=== PATIENT | male | born 1945 | race African-American/Black ===

== ENCOUNTER 2022-07-06 04:31 | Emergency (ER) | payer OTHER ==
[2022-07-06] MEDS ORDERED: EPINEPHrine 1 MG/10 ML SYR IV ONE (04:32)
[2022-07-06] MEDS ORDERED: D5W 250 ML IV ONE (04:32)
--- OUTSIDE RECORDS SUMMARY | 2022-07-06 04:34 | XMS REPORT | Continuity of Care Document ---
:1945 Author Organization [facility] t Address [address] [place] [address] Dr. Osborn [address] [place] [id number] Care Team Providers Name Role Phone Bruce-Julyo_A_AH Attending Clinician Unavailable Bruce-Mbayo_A_AH Admitting Clinician Unavailable Payers Payer Name Policy Type Policy Number Effective Date Expiration Date S [place] [employer] P [id number] [facility] [place] - [id number] 2019 [employer] 00:00:00 (MEDICARE REPLACEMENT/ADVANT AGE - HMO) Problems Condition Condition Condition Status Onset Resolution Last Treating Co mments Source Name Details Category Date Date Treatment Clinician Date Hyperchole Hyperchole Problem Active 2019-11 [facility] sterolemia sterolemia -18 Fa jennifer 00:00: Practic 00 e Essential Essential Problem Active 2019-11 Jasvir clara hypertensi Hypertensi 1-18 Fa jennifer on on 00:00: Practic 00 e Benign Benign Problem Active 2019-11 [facility] prostatic Prostatic -18 Fami ly hyperplasi Hyperplasi 00:00: Pr actic a a 00 e Allergies, Adverse Reactions, Alerts This patient has no known allergies or adverse reactions. Social History Smoking Status Start Date Stop Date Source Never Smoker Samm Family P chas Medications Ordered Filled Start Stop Current Ordering Indication Dosage Frequency Signature Comments Components Source Medication Medication Date Date Medication? Clinician (SIG) Name Name amlodipine amlodipine No 1 Q1D amlodipine [facility] 10 mg 10 mg 10 mg Family tablet Take tablet Take tablet Practic 1 tablet 1 tablet Take 1 e every day every day tablet by oral by oral every day route. route. by oral route. aspirin 81 aspirin 81 No 1 Q1D aspirin 81 [facility] mg mg mg Family tablet,camille tablet,camille tablet,del Practic yed release yed release ayed e Take 1 Take 1 release tablet tablet Take 1 every day every day tablet by oral by oral every day route. route. by oral route. glimepiride glimepiride No 1 Q1D glimepirid [facility] 1 mg tablet 1 mg tablet e 1 mg Family Take 1 Take 1 tablet Practic tablet tablet Take 1 e every day every day tablet by oral by oral every day route. route. by oral route. hydrochloro hydrochloro No 1 Q1D hydrochlor [facility] thiazide 25 thiazide 25 othiazide Family mg tablet mg tablet 25 mg Prac tic Take 1 Take 1 tablet e tablet tablet Take 1 every day every day tablet by oral by oral every day route. route. by oral route. metoprolol metoprolol No 1 Q1D metoprolol [facility] tartrate 50 tartrate 50 tartrate Family mg tablet mg tablet 50 mg Prac tic Take 1 Take 1 tablet e tablet tablet Take 1 every day every day tablet by oral by oral every day route. route. by oral route. olmesartan olmesartan No 1 Q1D olmesartan [facility] 40 mg 40 mg 40 mg Family tablet Take tablet Take tablet Practic 1 tablet 1 tablet Take 1 e every day every day tablet by oral by oral every day route. route. by oral route. Plavix 75 Plavix 75 No 1 Q1D Plavix 75 [facility] mg tablet mg tablet mg tablet Family Take 1 Take 1 Take 1 Practic tablet tablet tablet e every day every day every day by oral by oral by oral route. route. route. pravastatin pravastatin No 1 Q1D pravastati [facility] 40 mg 40 mg n 40 mg Family tablet Take tablet Take tablet Practic 1 tablet 1 tablet Take 1 e every day every day tablet by oral by oral every day route. route. by oral route. tamsulosin tamsulosin No 1capsul Q1D tamsulosin [facility] 0.4 mg 0.4 mg e(s) 0.4 mg [facility] capsule capsule capsule Practi c Take 1 Take 1 Take 1 e capsule capsule capsule every day every day every day by oral by oral by oral route. route. route. Vital Signs Vital Name Observation Time Observation Value Comments Source Height 2020-09-19 00:00:00 73 [in_i] [facility] BMI (Body Mass 2020-09-19 00:00:00 31.7 kg/m2 [facility] Index) Practice Body Weight 2020-09-19 00:00:00 240 [lb_av] [facility] Procedures This patient has no known procedures. Plan of Care Planned Activity Planned Date Details Comments Source Instructions [facility] Encounters Start End Encounter Admission Attending Care Care Encounter Source Date/Time Date/Time Type Type Clinicians Facility Department ID 2021-08-18 Outpatient [facility] [id number] [facility] 07:52:55 [id number] [facility] 2020-10-12 2020-10-12 Outpatient Bruce-Mbayo VFP VFP [id number] [facility] 09:02:00 09:02:00 _A_AH [id number] [facility] Pract[facility] e 2020-10-02 2020-10-02 Outpatient Bruce-Mbayo VFP VFP [phone] [facility] 03:09:00 03:09:00 _A_AH [id number] Family Practic e 2020-09-28 2020-09-28 Outpatient Bruce-Mbayo VFP VFP [phone] [facility] 06:27:00 06:27:00 _A_AH [id number] Family Practic e 2020-09-26 2020-09-26 Outpatient Bruce-Mbayo VFP VFP [phone] [facility] 03:21:00 03:21:00 _A_AH [id number] Family Practic e 2020-09-19 2020-09-19 Outpatient Bruce-Mbayo VFP VFP [id number] [facility] 04:27:00 04:27:00 _A_AH [id number] Family Practic e 2020-09-19 2020-09-19 Marcela VFP [place] - [id number] [facility] 00:00:00 00:00:00 BruceMaryay [facility] Gareth nichols PATIENT COORDINATOR FRONT DESK: Medical - Practi c [email or web address], [place] [address], [place] [address] , Ph. 2019-12-21 2019-12-21 Outpatient Bruce-Mbayo VFP VFP [phone] [facility] 07:13:00 07:13:00 _A_AH [id number] Family Practic e Results This patient has no known results.
[2022-07-06 04:52] LABS: Absolute Lymphocytes (CBC) 2.7 K/uL (0.7-4.9); Hematocrit 43.8 % (39.6-49.0); Lymphocytes % 35.1 % (15.3-44.8); MCV 82.1 fL (80-100); MPV 8.5 fL (7.6-11.3); RBC Red Blood Cell Count 5.33 M/uL (4.33-5.43)
[2022-07-06 04:55] LABS: Protime INR 1.09
[2022-07-06] MEDS ORDERED: ASPIRIN 81 MG CHEWABLE TABLET ONE (04:56)
[2022-07-06 05:11] LABS: Albumin 3.2 g/dL (3.4-5.0); Bilirubin Direct 0.2 mg/dL (0-0.2); Bilirubin Total 0.4 mg/dL (0.2-1.0); Potassium 3.5 mmol/L (3.5-5.1); Protein, Total 7.2 g/dL (6.4-8.2)
[2022-07-06 05:13] LABS: Troponin High Sensitivity 5777.1 pg/mL (<58.9)
--- NOTE | 2022-07-06 05:24 | ER ---
Nurse's Notes [facility] Name: Yuniel Tirado Jr Age: 76 yrs Sex: Male : 1945 Arrival Date: 07/06/2022 Time: 04:32 Bed 7 Private MD: Diagnosis: Unstable angina;Essential (primary) hypertension;Persistent atrial fibrillation-WITH RVR;Dyspnea;Obesity, unspecified;Non ST elevation PA;Acute kidney failure, unspecified-ON CHRONIC;Ventricular tachycardia Presentation: 07/06 04:37 Chief complaint: Patient states: chest pain began at 7pm no relief positive for SOB and kl diaphoresis. Ebola Screen: Patient negative for fever greater than or equal to 101.5 degrees Fahrenheit, and additional compatible Ebola Virus Disease symptoms. Initial Sepsis Screen: Does the patient meet any 2 criteria? HR > 90 bpm. No. Patient's initial sepsis screen is negative. Does the patient have a suspected source of infection? No. Patient's initial sepsis screen is negative. Risk Assessment: Do you want to hurt yourself or someone else? Patient reports no desire to harm self or others. Onset of symptoms was July 05, 2022 at 19:00. 04:37 Method Of Arrival: Ambulatory 04:37 Acuity: SAVANNAH 2 kl 07:09 Coronavirus screen: Vaccine status: Patient reports receiving the 2nd dose of the covid ke1 vaccine. Triage Assessment: 04:39 General: Appears uncomfortable, well groomed, well developed, Behavior is calm, kl cooperative. Pain: Complains of pain in anterior aspect of right upper chest Pain currently is 2 out of 10 on a pain scale. Historical: - Allergies: 04:39 No Known Allergies; kl - Home Meds: 04:54 hydrochlorothiazide 25 mg Oral tab 1 tab once daily [Active]; Lopressor 50 mg Oral tab kl 1 tab 2 times per day [Active]; olmesartan 40 mg oral tab 1 tab once daily [Active]; Flomax 0.4 mg Oral cap 1 cap once daily [Active]; pravastatin 80 mg oral tab 1 tab once daily [Active]; clopidogrel 75 mg oral tab 1 tab once daily [Active]; aspirin 81 mg Oral cap 1 cap once daily [Active]; insulin [Active]; - PMHx: 04:39 Diabetes mellitus; Hypertensive disorder; Myocardial infarction; kl - PSHx: 04:39 Stented artery; kl - Immunization history:: Client reports receiving the 2nd dose of the Covid vaccine. - Social history:: Smoking status: Patient denies any tobacco usage or history of. - Family history:: not pertinent. Screenin:11 Abuse screen: Denies threats or abuse. Nutritional screening: No deficits noted. ke1 Tuberculosis screening: No symptoms or risk factors identified. Fall Risk None identified. Assessment: 05:00 Reassessment: Patient is alert, oriented x 3, equal unlabored respirations, skin ke1 warm/dry/pink. Cardiovascular: Rhythm is sinus tachycardia. 06:10 Cardiovascular: Rhythm is SVT. ke1 06:10 Reassessment: Patient denies pain at this time. Respiratory: Airway is patent ke1 Respiratory effort is even, unlabored, Respiratory pattern is regular, symmetrical. 06:27 Reassessment: report called to Martinez JARRELL. 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 ke1 Vital Signs: 04:37 BP 129 / 101; Pulse 132; Resp 30; Temp 98(O); Pulse Ox 100% ; Pain 2/10; kl 05:12 Weight 114.08 kg; Height 6 ft. 1 in. (185.42 cm); kl 05:30 BP 101 / 80; Pulse 142; Resp 25; Pulse Ox 98% on R/A; ke1 06:00 BP 113 / 99; Pulse 137; Resp 25; Pulse Ox 99% on R/A; ke1 06:20 BP 112 / 92; Pulse 135; Resp 27; Pulse Ox 97% on R/A; ke1 05:12 Body Mass Index 33.18 (114.08 kg, 185.42 cm) ED Course: 04:32 Patient arrived in ED. la1 04:39 Triage completed. 04:43 Initial lab(s) drawn, by ar, sent to lab. Inserted saline lock: 20 gauge in right tw5 antecubital area, using aseptic technique. Blood collected. 04:43 Basic Metabolic Panel Sent. tw5 04:43 CBC with Diff Sent. tw5 04:43 LFT's Sent. tw5 04:43 NT PRO-BNP Sent. tw5 04:43 PT-INR Sent. tw5 04:43 Troponin HS Sent. tw5 04:46 Gilberto Castle, RN is Primary Nurse. ke1 04:53 XRAY Chest (1 view) In Process Unspecified. EDMS 04:56 Arjun Nicolas MD is Attending Physician. enrique 05:[address] Nicolas with Sy Morton from the [facility]. 06:04 administrative approval given by Corinne Morton/ patient has been accepted to [facility] SICU 6CA5/ Dr. Rdz has accepted the patient in transfer without conference with Dr. Nicolas/ report to be called to [phone]. 06:06 [facility] called. eb 06:10 Inserted saline lock: 18 gauge EJ, using aseptic technique. by MD nicolas. ke1 06:11 Arm band placed on. ke1 06:11 Bed in low position. Call light in reach. Side rails up X 1. Side rails up X2. ke1 07:08 Renal Ultrasound-Complete In Process Unspecified. EDMS 07:08 No provider procedures requiring assistance completed. Patient transferred, IV remains ke1 in place. Administered Medications: 04:58 Drug: Aspirin Chewable Tablet 324 mg Route: PO; kl 07:13 Follow up: Response: No adverse reaction ke1 05:35 Drug: Pepcid (famotidine) 20 mg Route: IVP; Site: right antecubital; ke1 06:00 Follow up: Response: No adverse reaction ke1 05:35 Drug: Digoxin 0.5 mg Route: IVP; Site: right antecubital; ke1 06:15 Follow up: Response: No change in condition ke1 05:37 Drug: Heparin (PA-Bolus No thrombolytic) - HEParin 60 units/kg {Co-Signature: tw5 ke1 (Leena Rose).} Route: IVP; Site: right antecubital; 05:40 Drug: Heparin (PA Drip) 12 units/kg/hr - (HEParin 32724 units, D5W 500 ml) ke1 {Co-Signature: tw5 (Leena Rose).} Route: IV; Rate: calculated rate; Site: right antecubital; 05:45 Drug: Lopressor (metoprolol) 5 mg Route: IVP; Site: right antecubital; ke1 06:15 Follow up: Response: No change in condition ke1 05:46 Drug: PlaVIX (clopidogrel) 75 mg Route: PO; ke1 07:13 Follow up: Response: No adverse reaction ke1 05:47 Drug: Lopressor (metoprolol TARTRATE) 50 mg Route: PO; ke1 07:14 Follow up: Response: No change in condition ke1 06:06 CANCELLED (Duplicate Order): amiodarone 150 mg IVP once kl 06:06 Drug: amiodarone 150 mg Route: IVP; Site: right antecubital; kl 06:06 CANCELLED (Duplicate Order): amiodarone 900 mg, D5W 500 ml IVPB at 1 mg/min continuous; kl for 6 hrs, then change to 0.5 mg/min 06:08 CANCELLED (Duplicate Order): amiodarone 900 mg, D5W 500 ml IVPB at 1 mg/min continuous; tw5 for 6 hrs, then change to 0.5 mg/min 06:10 Drug: Magnesium Sulfate 1 grams Route: IVPB; Infused Over: 1 hrs; Site: left jugular; kl 06:15 Drug: amiodarone 900 mg, D5W 500 ml Route: IVPB; Rate: 1 mg/min; Site: right kl antecubital; 06:31 CANCELLED (Physician Discretion): Lopressor (metoprolol) 5 mg IVP once; Hold for SBP ke1 <100 or HR <60. 06:31 CANCELLED (Physician Discretion): Lopressor (metoprolol) 5 mg IVP once; Hold for SBP ke1 <100 or HR <60. 06:36 Drug: NS 0.9% 500 ml Route: IV; Rate: bolus; Site: left jugular; ke1 Medication: 07:09 VIS not applicable for this client. ke1 Outcome: 05:24 ER care complete, transfer ordered by . enrique 07:08 Transferred by helicopter to [facility]. ke1 07:09 Condition: stable ke1 07:09 Discharge instructions given to Instructed on the need for transfer. 07:15 Patient left the ED. ke1 Signatures: Dispatcher [employer] EDMS Nadine Elam RN RN kl Anderson, Corey, MD MD cha Attema, Lee, SCULLION CHIEF-C SCULLION CHIEF-Cla1 Ileana Price Tiffany 5 Gilberto Castle RN RN ke1 Leena Milton tw5 Corrections: (The following items were deleted from the chart) 06:38 06:37 BP 101 / 80; Pulse 142bpm; Resp 25bpm; Pulse Ox 98% RA; ke1 ke1
--- NOTE | 2022-07-06 05:24 | EDPHYS ---
Physician Documentation [facility] Name: Yuniel Tirado Jr Age: 76 yrs Sex: Male : 1945 Arrival Date: 07/06/2022 Time: 04:32 Bed 7 Private MD: ED Physician Arjun Nicolas HPI: 07/06 05:10 This 76 yrs old Black Male presents to ER via Ambulatory with complaints of chest pain enrique / sob x 1 day. 05:10 The patient has shortness of breath at rest, with light activity. Onset: The enrique symptoms/episode began/occurred 2 day(s) ago. Duration: The symptoms are continuous, and are unchanged since they started. The patient's shortness of breath is aggravated by exertion, light activity, is alleviated by rest, sitting up, application of supplemental oxygen. The patient or guardian reports chest pain that is located primarily in the substernal area. Onset: 2 day(s) ago. The pain does not radiate. Associated signs and symptoms: Pertinent positives: non-productive cough. Severity of symptoms: At their worst the symptoms were moderate in the emergency department the symptoms are unchanged. Associated signs and symptoms: Pertinent positives: diaphoresis, nausea, shortness of breath. The chest pain is described as a heaviness, a pressure. Historical: - Allergies: 04:39 No Known Allergies; kl - Home Meds: 04:54 hydrochlorothiazide 25 mg Oral tab 1 tab once daily [Active]; Lopressor 50 mg Oral tab kl 1 tab 2 times per day [Active]; olmesartan 40 mg oral tab 1 tab once daily [Active]; Flomax 0.4 mg Oral cap 1 cap once daily [Active]; pravastatin 80 mg oral tab 1 tab once daily [Active]; clopidogrel 75 mg oral tab 1 tab once daily [Active]; aspirin 81 mg Oral cap 1 cap once daily [Active]; insulin [Active]; - PMHx: 04:39 Diabetes mellitus; Hypertensive disorder; Myocardial infarction; kl - PSHx: 04:39 Stented artery; kl - Immunization history:: Client reports receiving the 2nd dose of the Covid vaccine. - Social history:: Smoking status: Patient denies any tobacco usage or history of. - Family history:: not pertinent. ROS: 05:10 Constitutional: Negative for fever, chills, and weight loss, Eyes: Negative for injury, enrique pain, redness, and discharge, ENT: Negative for injury, pain, and discharge, Neck: Negative for injury, pain, and swelling, Abdomen/GI: Negative for abdominal pain, nausea, vomiting, diarrhea, and constipation, Back: Negative for injury and pain, : Negative for injury, bleeding, discharge, and swelling, MS/Extremity: Negative for injury and deformity, Skin: Negative for injury, rash, and discoloration, Neuro: Negative for headache, weakness, numbness, tingling, and seizure, Psych: Negative for depression, anxiety, suicide ideation, homicidal ideation, and hallucinations, Allergy/Immunology: Negative for hives, rash, and allergies, Endocrine: Negative for neck swelling, polydipsia, polyuria, polyphagia, and marked weight changes, Hematologic/Lymphatic: Negative for swollen nodes, abnormal bleeding, and unusual bruising. 05:10 Cardiovascular: Positive for chest pain. 05:10 Respiratory: Positive for shortness of breath. Exam: 05:10 Constitutional: This is a well developed, well nourished patient who is awake, alert, enrique and in no acute distress. Head/Face: Normocephalic, atraumatic. Eyes: Pupils equal round and reactive to light, extra-ocular motions intact. Lids and lashes normal. Conjunctiva and sclera are non-icteric and not injected. Cornea within normal limits. Periorbital areas with no swelling, redness, or edema. ENT: Nares patent. No nasal discharge, no septal abnormalities noted. Tympanic membranes are normal and external auditory canals are clear. Oropharynx with no redness, swelling, or masses, exudates, or evidence of obstruction, uvula midline. Mucous membranes moist. Neck: Trachea midline, no thyromegaly or masses palpated, and no cervical lymphadenopathy. Supple, full range of motion without nuchal rigidity, or vertebral point tenderness. No Meningismus. Chest/axilla: Normal chest wall appearance and motion. Nontender with no deformity. No lesions are appreciated. Respiratory: Lungs have equal breath sounds bilaterally, clear to auscultation and percussion. No rales, rhonchi or wheezes noted. No increased work of breathing, no retractions or nasal flaring. Abdomen/GI: Soft, non-tender, with normal bowel sounds. No distension or tympany. No guarding or rebound. No evidence of tenderness throughout. Back: No spinal tenderness. No costovertebral tenderness. Full range of motion. Male : Normal genitalia with no discharge or lesions. Skin: Warm, dry with normal turgor. Normal color with no rashes, no lesions, and no evidence of cellulitis. MS/ Extremity: Pulses equal, no cyanosis. Neurovascular intact. Full, normal range of motion. Neuro: Awake and alert, GCS 15, oriented to person, place, time, and situation. Cranial nerves II-XII grossly intact. Motor strength 5/5 in all extremities. Sensory grossly intact. Cerebellar exam normal. Normal gait. Psych: Awake, alert, with orientation to person, place and time. Behavior, mood, and affect are within normal limits. 05:10 Cardiovascular: Rate: tachycardic, Rhythm: irregularly irregular, Pulses: Pulses are 4+ in bilateral radial, brachial, femoral, popliteal, posterior tibial and and dorsalis pedis arteries.. Heart sounds: normal, normal S1and S2, no S3 or S4, no murmur, no rub, no gallop, Edema: is not appreciated, JVD: is not appreciated. 05:10 ECG was reviewed by the Attending Physician. Vital Signs: 04:37 BP 129 / 101; Pulse 132; Resp 30; Temp 98(O); Pulse Ox 100% ; Pain 2/10; kl 05:12 Weight 114.08 kg; Height 6 ft. 1 in. (185.42 cm); kl 05:30 BP 101 / 80; Pulse 142; Resp 25; Pulse Ox 98% on R/A; ke1 06:00 BP 113 / 99; Pulse 137; Resp 25; Pulse Ox 99% on R/A; ke1 06:20 BP 112 / 92; Pulse 135; Resp 27; Pulse Ox 97% on R/A; ke1 05:12 Body Mass Index 33.18 (114.08 kg, 185.42 cm) Procedures: 06:09 Peripheral line: by aseptic technique a peripheral line was placed in the left external enrique jugular vein. MDM: 04:57 Patient medically screened. [facility] 05:19 Differential diagnosis: Chronic Obstructive Pulmonary Disease abnormal EKG, acute enrique myocardial infarction, acute pericarditis, anxiety, coronary artery disease esophagitis, gastritis, pancreatitis, pericarditis, pulmonary embolus, stable angina, unstable angina, Myocardial Infarction pulmonary edema, Pulmonary Embolism reactive airway disease, Unstable Angina. Antibiotic administration: Not indicated. HEART Score: History: Moderately Suspicious (1), ECG: Significant ST-deviation (2), Age: > or = 65 years (2), Risk Factors: > or = 3 Risk factors for atherosclerotic disease (2), [Hypercholesterolemia] [Hypertension] [DM] [+ Family HX] [Obesity] Troponin: > or = 3 x Normal Limit (2). The patient was given aspirin in the Emergency Department. The patient's Wells Deep Vein Thrombosis Score was calculated as follows: Total Score: 0. This patient was found to be at low risk for a deep vein thrombosis by using the Well's assessment criteria Heart Rate >100 BPM (1.5 Pts) Total Score: 0-2 Pts- Low Risk. The patient's pulmonary embolism risk score was calculated as follows: the patients heart rate is greater than 100 beats per minute (1.5 Pts) Total Score: 0-2 points. This patient was found to be at low risk for a pulmonary embolism by using the Well's assessment criteria the patients heart rate is greater than 100 beats per minute (1.5 Pts) Total Score: 0-2 points. This patient was found to be at low risk for a pulmonary embolism by using the Well's assessment criteria. ADAM Risk Score: 1 - patient's age is greater or equal to 65 years, 1 - Three or more CAD risk factors, 1- Known CAD, 1 - ASA use in past 7 days, 1 - Recent [<24hrs] Severe Angina, 1 - Elevated Cardiac Markers, 1 - ST deviation >0.5mm, TOTAL SCORE = 7. Immunization status: Pneumococcal vaccine: Influenza vaccine: Data reviewed: vital signs, nurses notes, lab test result(s), EKG, radiologic studies, plain films. Data interpreted: satellite project site monitor: rate is 138 beats/min, rhythm is regular, Pulse oximetry: on room air is 132 %. Test interpretation: by ED physician or midlevel provider: ECG, plain radiologic studies. 07/06 04:34 Order name: Basic Metabolic Panel; Complete Time: 05:36 07/06 04:34 Order name: CBC with Diff; Complete Time: 04:55 07/06 04:34 Order name: LFT's; Complete Time: 05:36 07/06 04:34 Order name: NT PRO-BNP; Complete Time: 05:36 la07/06 04:34 Order name: PT-INR; Complete Time: 05:11 la07/06 04:34 Order name: Troponin HS; Complete Time: 05:36 la07/06 04:34 Order name: XRAY Chest (1 view) la1 07/06 04:38 Order name: SARS RAPID; Complete Time: 06:28 la1 07/06 05:34 Order name: Ptt, Activated; Complete Time: 05:55 ke07/06 06:46 Order name: Renal Ultrasound-Complete EDMS 07/06 04:34 Order name: EKG; Complete Time: 04:35 la07/06 04:34 Order name: Cardiac monitoring; Complete Time: 04:43 la07/06 04:34 Order name: EKG - Nurse/Tech; Complete Time: 04:43 la07/06 04:34 Order name: IV Saline Lock; Complete Time: 04:43 la07/06 04:34 Order name: Labs collected and sent; Complete Time: 04:43 07/06 04:34 Order name: O2 Per Protocol; Complete Time: 04:43 07/06 04:34 Order name: O2 Sat Monitoring; Complete Time: 04:43 la07/06 05:09 Order name: IV Saline Lock - Large Bore; Complete Time: 07:13 enrique EC:10 Rate is 138 beats/min. Rhythm is irregularly irregular. QRS [place] is Normal. MO interval enrique is normal. QRS interval is prolonged at 140 msec. QT interval is normal. No Q waves. T waves are Normal. ST Segment is elevated in leads II, III, aVF, V3, V4, V5, V6. Clinical impression: Atrial Flutter. Interpreted by me. Reviewed by me. Administered Medications: 04:58 Drug: Aspirin Chewable Tablet 324 mg Route: PO; kl 07:13 Follow up: Response: No adverse reaction ke1 05:35 Drug: Pepcid (famotidine) 20 mg Route: IVP; Site: right antecubital; ke1 06:00 Follow up: Response: No adverse reaction ke1 05:35 Drug: Digoxin 0.5 mg Route: IVP; Site: right antecubital; ke1 06:15 Follow up: Response: No change in condition ke1 05:37 Drug: Heparin (CO-Bolus No thrombolytic) - HEParin 60 units/kg {Co-Signature: tw5 ke1 (Leena Rose).} Route: IVP; Site: right antecubital; 05:40 Drug: Heparin (CO Drip) 12 units/kg/hr - (HEParin 17376 units, D5W 500 ml) ke1 {Co-Signature: tw5 (Leena Rose).} Route: IV; Rate: calculated rate; Site: right antecubital; 05:45 Drug: Lopressor (metoprolol) 5 mg Route: IVP; Site: right antecubital; ke1 06:15 Follow up: Response: No change in condition ke1 05:46 Drug: PlaVIX (clopidogrel) 75 mg Route: PO; ke1 07:13 Follow up: Response: No adverse reaction ke1 05:47 Drug: Lopressor (metoprolol TARTRATE) 50 mg Route: PO; ke1 07:14 Follow up: Response: No change in condition ke1 06:06 CANCELLED (Duplicate Order): amiodarone 150 mg IVP once kl 06:06 Drug: amiodarone 150 mg Route: IVP; Site: right antecubital; kl 06:06 CANCELLED (Duplicate Order): amiodarone 900 mg, D5W 500 ml IVPB at 1 mg/min continuous; kl for 6 hrs, then change to 0.5 mg/min 06:08 CANCELLED (Duplicate Order): amiodarone 900 mg, D5W 500 ml IVPB at 1 mg/min continuous; tw5 for 6 hrs, then change to 0.5 mg/min 06:10 Drug: Magnesium Sulfate 1 grams Route: IVPB; Infused Over: 1 hrs; Site: left jugular; kl 06:15 Drug: amiodarone 900 mg, D5W 500 ml Route: IVPB; Rate: 1 mg/min; Site: right kl antecubital; 06:31 CANCELLED (Physician Discretion): Lopressor (metoprolol) 5 mg IVP once; Hold for SBP ke1 <100 or HR <60. 06:31 CANCELLED (Physician Discretion): Lopressor (metoprolol) 5 mg IVP once; Hold for SBP ke1 <100 or HR <60. 06:36 Drug: NS 0.9% 500 ml Route: IV; Rate: bolus; Site: left jugular; ke1 Disposition Summary: 07/06/22 05:24 Transfer Ordered Transfer Location: [facility] enrique Reason: Higher level of care enrique Condition: Fair enrique Problem: new enrique Symptoms: have improved enrique Accepting Physician: Dr. Rdz/ [facility] SICU(07/06/22 07:15) ke1 Diagnosis - Unstable angina enrique - Essential (primary) hypertension enrique - Persistent atrial fibrillation - WITH RVR enrique - Dyspnea enrique - Obesity, unspecified enrique - Non ST elevation [place] enrique - Acute kidney failure, unspecified - ON CHRONIC enrique - Ventricular tachycardia enrique Forms: - Medication Reconciliation Form enrique - SBAR form enrique Signatures: Dispatcher [employer] EDNadine Ibrahim RN RN kl Anderson, Corey, MD MD cha Attema, Lee, CRYSTALLIZER OPERATOR-C CRYSTALLIZER OPERATOR-Cla1 Ileana Price Tiffany tw5 Gilberto Castle RN RN ke Leena Rose tw5 Corrections: (The following items were deleted from the chart) 05:38 05:24 to CCU, [facility] enrique enrique 06:06 06:06 amiodarone 150 mg IVP once ordered. tw5 kl 06:06 06:06 amiodarone 900 mg, D5W 500 ml IVPB at 1 mg/min continuous; for 6 hrs, then change kl to 0.5 mg/min ordered. kl 06:08 06:06 amiodarone 900 mg, D5W 500 ml IVPB at 1 mg/min continuous; for 6 hrs, then change tw5 to 0.5 mg/min ordered. tw5 06:10 05:38 to CCU, [facility] enrique enrique 06:16 06:10 to CCU, [facility] eb 06:31 05:07 Lopressor (metoprolol) 5 mg IVP once; Hold for SBP <100 or HR <60. ordered. enrique ke1 06:31 05:39 Lopressor (metoprolol) 5 mg IVP once; Hold for SBP <100 or HR <60. ordered. enrique ke1 06:46 05:41 Rp [employer]+[id number].RAD.BRZ ordered. EDMS EDMS 07:15 06:16 Dr. Rdz/ [facility] SICU eb ke1
[2022-07-06] MEDS ORDERED: METOPROLOL TARTRATE 5 MG/5 ML INJ IV ONE ×2 (05:27→06:10)
[2022-07-06] MEDS ORDERED: DIGOXIN 0.25 MG/ML AMP ONE (05:27)
[2022-07-06] MEDS ORDERED: NA CHLORIDE 0.9% 500 ML ONE (05:27)
[2022-07-06] MEDS ORDERED: METOPROLOL TAR 50 MG TAB ONE (05:27)
[2022-07-06] MEDS ORDERED: FAMOTIDINE 20 MG/2 ML VIAL IV ONE (05:28)
[2022-07-06] MEDS ORDERED: HEPARIN/D5W 25,000 UNIT/500 ML BAG IV ONE (05:38)
[2022-07-06] MEDS ORDERED: CLOPIDOGREL 75 MG TABLET ONE (05:38)
[2022-07-06] MEDS ORDERED: HEPARIN 5000 UNIT/ML 1 ML VIAL ONE (05:38)
[2022-07-06 06:09] LABS: SARS-CoV-2 Antigen Rapid Res Negative (Negative)
[2022-07-06] MEDS ORDERED: MAGNESIUM SULFATE 1 gm IVPB 1 GM/100 ML BAG IV ONE (06:09)
[2022-07-06] MEDS ORDERED: AMIODARONE HCL 150 MG/3 ML INJ IV ONE (06:09)
[2022-07-06] MEDS ORDERED: AMIODARONE IN DEXTROSE,ISO-OSM 360 MG/200 ML BAG IV ONE (06:17)
[2022-07-06 07:32] VITALS: TEMP 98
--- NOTE | 2022-07-06 07:38 | RAD REPORT ---
EXAM DESCRIPTION: US - Renal Ultrasound-Complete - 07/06/2022 7:07 am CLINICAL HISTORY: Abdominal pain/hydronephrosis COMPARISON: 2014 FINDINGS: The right kidney measures cm with a normal echotexture. 2 centimeter isoechoic structure right kidney The left kidney measures cm with a normal echotexture. A 1.1 centimeter cyst is present Hydronephrosis is not seen. No gross abnormality of bladder IMPRESSION: 2 centimeter isoechoic structure right kidney. It is uncertain whether this represents h ypertrophied column of Pranay, a benign complex cyst or solid mass. It is recommended that patient ortega ve a nonemergent CT scan of the kidneys with and without IV contrast
[2022-07-06 07:40] VITALS: BP 112/92; O2SAT 97
--- NOTE | 2022-07-07 09:18 | RAD REPORT ---
EXAM DESCRIPTION: RAD - Chest Single View - 07/06/2022 4:51 am CLINICAL HISTORY: The patient is 76 years old and is Male; CHEST PAIN TECHNIQUE: Frontal view of the chest. COMPARISON: None FINDINGS: LUNGS: No focal consolidation identified. PLEURAL SPACE: No pneumothorax. HEART: Enlarged cardiac silhouette is likely exaggerated due to portable technique and patient body habitus. MEDIASTINUM: Unremarkable. BONES/JOINTS: Unremarkable. UPPER ABDOMEN: Right hemidiaphragm elevation. IMPRESSION: No acute findings in the chest. Electronically signed by: Tito Avalos MD 07/06/2022 5:10 AM CDT Due to temporary technical issues with the PACS/Fluency reporting system, reports are being signed by the in house radiologists without review as a courtesy to insure prompt reporting. The interpreting radiologist is fully responsible for the content of the report.
== END 2022-07-06 07:15 | disposition short-term general hospital (02) ==
LOC: ER 04:31
PROC: 05HQ33Z Insertion of Infusion Device into Left External Jugular Vein, Percutaneous Approach (ICD-10-PCS; principal; 2022-07-06)
DX: I20.0 Unstable angina (principal); I21.4 Non-ST elevation (NSTEMI) myocardial infarction; I48.19 Other persistent atrial fibrillation; I10 Essential (primary) hypertension; I47.2 Ventricular tachycardia; E11.22 Type 2 diabetes mellitus with diabetic chronic kidney disease; I12.9 Hypertensive chronic kidney disease with stage 1 through stage 4 chronic kidney disease, or unspecified chronic kidney disease; N18.9 Chronic kidney disease, unspecified; N17.9 Acute kidney failure, unspecified; R06.00 Dyspnea, unspecified; I25.2 Old myocardial infarction; Z20.822 Contact with and (suspected) exposure to COVID-19; Z79.82 Long term (current) use of aspirin; Z79.4 Long term (current) use of insulin; E66.9 Obesity, unspecified; Z68.33 Body mass index [BMI] 33.0-33.9, adult
CPT/HCPCS: 93005; 85025; 80048; 36415; 85610; 80076; 85730; 84484; 83880; 71045; 76770; 99285; 87811; 36569; J1160; J0282 ×2; J1644 ×2; J3475; J0171; J7060; J7040